=== PATIENT | male | born 1950 | race Caucasian/White ===

== ENCOUNTER → 2017-04-20 | Outpatient (CLI) | payer BC ==
--- NOTE | 2017-04-20 10:01 | DIAGNOSTIC IMAGING REPORT ---
RIGHT KNEE 4 OR MORE HISTORY: 66 years-old Male RIGHT KNEE PAIN Right acute posterior lateral right knee pain without reported trauma. COMPARISON: None available. TECHNIQUE: AP view of the bilateral standing knees with sunrise, tunnel and lateral views of the right knee. FINDINGS: I compartment osteoarthritis is noted within the bilateral knees, most pronounced the medial compartment left knee with there is moderate disease. Moderate osteoarthritis is also noted within the right patellofemoral joint. Mild to moderate medial and mild lateral compartment degenerative changes are seen on the right. Nonspecific periosteal thickening is noted involving the proximal tibia, left greater than right. There is no acute fracture or dislocation. No osteochondral defect identified. Small joint effusion is noted. Peripheral vascular disease. IMPRESSION: 1. No acute fracture or dislocation. 2. Tricompartmental osteoarthritis of the bilateral knees, most pronounced within the left medial compartment and right patellofemoral joint where there is moderate disease. 3. Small joint effusion. 4. Peripheral vascular disease. The above report was generated using voice recognition software. It may contain grammatical, syntax or spelling errors. Electronically signed by: Jose Sheehan M.D. 04/20/2017 9:59 AM Dictated Date/Time: 04/20/2017 9:52 AM
== END | disposition home or self-care (01) ==
LOC: C.RDSM 09:35
PROVIDERS: ATTEND Family Medicine
DX: M25.561 Pain in right knee (principal); M17.11 Unilateral primary osteoarthritis, right knee; M25.461 Effusion, right knee

== ENCOUNTER → 2017-07-11 | Outpatient (CLI) | payer BC ==
--- NOTE | 2017-07-11 11:32 | DIAGNOSTIC IMAGING REPORT ---
R LOWER EXT JOINT WITHOUT CLINICAL HISTORY: 67 years-old Male with RT KNEE PAIN. Acute right knee pain for 3 months. Pain is most pronounced laterally. Concern for possible meniscal tear. COMPARISON: Right knee radiographs 04/20/2017 TECHNIQUE: Multiplanar, multisequence MRI of the right knee was performed without intravenous contrast. FINDINGS: MENISCI: Mild intrameniscal degeneration of the lateral meniscus without discrete tear. There is a radial tear of the posterior horn medial meniscus without definite extension into the meniscal root as seen on image 21 series 4 and image 17 series 7 and lastly on image 16 of series 9. No displaced fragment or parameniscal cyst identified. There is mild irregularity involving the undersurface of the medial meniscal body as seen on image 15 series 4 which is suspicious for subtle tear, not seen on the sagittal images. CRUCIATE LIGAMENTS: The anterior and posterior cruciate ligaments are normal in signal, morphology and course. COLLATERAL LIGAMENTS: The popliteus tendon, biceps femoris tendon, fibular collateral ligament and iliotibial band are intact. The superficial and deep components of the medial collateral ligament are intact. EXTENSOR MECHANISM: The quadriceps and patellar tendons are intact.The medial and lateral patellar retinacula are intact. There is mild thickening with intermediate T2 signal of the proximal patellar tendon suggesting tendinosis. KNEE JOINT: Small to moderate joint effusion with mild synovitis. High-grade chondral loss with chondral fissuring and underlying subchondral edema is noted involving the lateral patellar facet and to a lesser extent the patellar apex and medial patellar facet. Mild chondral thinning is also noted within the trochlear groove. Moderate joint space narrowing with multifocal chondral thinning involves the medial compartment. There is mild subcortical cystic change/edema involving both the medial femoral condyle and tibial plateau. Mild chondral loss and joint space narrowing involves the lateral compartment. BONE MARROW: No fracture or marrow replacing process. SOFT TISSUES: Mild nonspecific edema seen within the posterior intercondylar notch. No large Ruby's cyst. IMPRESSION: 1. Tricompartmental osteoarthritis, moderate within the medial and patellofemoral compartments with areas of high-grade chondral loss as above. 2. Radial tear of the posterior horn medial meniscus without definite extension into the meniscal root. No displaced fragment or parameniscal cyst. Probable subtle horizontal undersurface tear of the medial meniscal body as above. 3. Small to moderate joint effusion with synovitis. 4. Mild patellar tendinosis. The above report was generated using voice recognition software. It may contain grammatical, syntax or spelling errors. Electronically signed by: Jose Sheehan M.D. 07/11/2017 11:31 AM Dictated Date/Time: 07/11/2017 10:46 AM
== END | disposition home or self-care (01) ==
LOC: C.MRI 09:31
PROVIDERS: ATTEND Family Medicine
DX: M17.11 Unilateral primary osteoarthritis, right knee (principal); S83.241A Other tear of medial meniscus, current injury, right knee, initial encounter; M76.51 Patellar tendinitis, right knee; X58.XXXA Exposure to other specified factors, initial encounter

== ENCOUNTER 2025-06-14 07:00 | Observation (INO) ==
[2025-06-14 07:59] LABS: Hematocrit (blood only) 41.4 % (42.0-52.0); Hemoglobin 13.5 g/dl (14.0-18.0); Immature Granulocytes # (auto) 0.03 K/uL (0.01-0.20); Immature Granulocytes % (auto) 0.4 %; Mean Corpuscular Hemoglobin 29.4 pg (25.0-34.0); Mean Corpuscular Volume 90.2 fL (80.0-100.0); Platelet Count 260 K/uL (130-400); RDW Standard Deviation 47.0 fL (36.4-46.3); Red Blood Count 4.59 M/uL (4.70-6.10); White Blood Count 8.11 K/ul (4.8-10.8)
[2025-06-14] MEDS: SODIUM CHLORIDE 0.9% 1,000 ML IV SCH (07:59)
--- NOTE | 2025-06-14 08:03 | Emergency Department Note ---
Impression & Plan Atrial fibrillation, Atrial flutter, Hypotension, Hypomagnesemia ED Provider Note ED Provider Note NAME: HAI ORTIZ AGE:75 SEX: Male : 1950 ARRIVES VIA: EMS INFORMANT: Patient, EMS ED PROVIDER(s): Lucie Marin DO CHIEF COMPLAINT: rib pain, dizziness HPI: This is a 75-year-old male presents emergency department via EMS after complaining to staff this morning of dizziness, chest pain, difficulty breathing. Patient states he has "not feeling" in his chest but has difficulty otherwise describing anxiety. Patient does have a history of dementia, according to [place] paperwork. He denies any coming nausea or vomiting, denies abdominal pain. At time of arrival here in the emergency department he denied any chest pain, dizziness, difficulty breathing. Patient noted to be tachycardic and hypotensive for EMS and route variable heart rate range from normal sinus in the 70s up to atrial fibrillation in the 130s. Patient was given IV fluids en route to the hospital. PAST MEDICAL HISTORY:See Below PAST SURGICAL HISTORY:See Below FAMILY HISTORY:See Below SOCIAL HISTORY:See Below HOME MEDICATIONS:See Below ALLERGIES:See Below VITALS:See Below PHYSICAL EXAMINATION: GENERAL: alert, well appearing, well nourished, no distress, non-toxic EYE EXAM: normal conjunctiva, PERRL and EOM's grossly intact OROPHARYNX: no exudate, no erythema, lips, buccal mucosa, and tongue normal and mucous membranes are moist NECK: supple, no nuchal rigidity, no adenopathy, non-tender LUNGS: Clear to auscultation. Normal chest wall mechanics, no w/r/r HEART: no murmurs, S1 normal and S2 normal ABDOMEN: abdomen soft, non-tender, normo-active bowel sounds, no masses, no rebound or guarding. SKIN: no rashes, petechiae, orbruising UPPER EXTREMITIES: upper extremities are grossly normal. FROM, nml pulses b/l. LOWER EXTREMITIES: No pitting edema. FROM, nml pulses b/l. NEURO EXAM: Normal sensorium, cranial nerves II-XII grossly intact, normal speech, no facial droop,nogross weakness of arms, no gross weakness of legs. Gross sensation intact. No ataxia. Vital Signs: reviewed and remarkable Differential Diagnosis: acute coronary syndrome, pericarditis, pulmonary embolus, aortic dissection, pneumonia, pneumothorax, musculoskeletal pain, shingles, GERD, GI bleed, as well as others were considered MEDICAL DECISION MAKING: This is a 75-year-old male presents the emergency department from a local facility due to concern for dizziness, palpitations, chest pain. He was noted to be tachycardic and hypotensive. Patient does have a history of atrial fibrillation. Patient afebrile and on arrival was still intermittently tachycardic and intermittently hypotensive. Patient's rhythm varied from normal sinus to atrial flutter to atrial fibrillation. His blood pressure was improved when he would return to a normal sinus rhythm. Labs drawn and sent, IV established, EKG and CXR performed and interpreted at bedside, and patient placed on telemetry. Patient was continued on IV fluids here. I did attempt to contact patient's sister and spoke with her and she did not have much additional medical information to offer. I also reached out to the listed PCP, Dr. Cassidy, who was able to add that the patient did have an echo earlier this year which showed an ejection fraction of 40% and global hypokinesis. Patient remained awake and alert and denied any symptoms at bedside while in the emergency department. Patient was noted to have significant hypomagnesemia and will be started on IV repletion. Patient's other labs reassuring. Case discussed with the hospitalist team for additional evaluation and management. Consultation(s): 0908: Discussed with Dr. Qureshi, [place] hospitalist, for additional evaluation and mgmt. ER Treatment Provided: See below 0758: Discussed with sister, Ambar. Diagnostics Interpreted By Me: -ECG: Atrial fibrillation rate of 133, normal axis, normal intervals, nonspecific ST/T wave change -Cardiac Monitoring: An order was placed for continuous cardiac monitoring. The monitor shows a rate of 78 with normal sinus rhythm. -Laboratory studies: As stated above and show below. -Imaging studies: X-ray Chest: A single view study of the chest was reviewed and was negative for cardiomegaly, focal infiltrate, effusion, pulmonary edema, or wide mediastinum. Triage Nursing Note Reviewed Prior/Outside Records Reviewed -accompanying senior living paperwork and medication list Critical care: Critical care of 44 min performed to assess and manage high likelihood of life-threatening dysrhythmia and hypotension, involving labs and imaging performed with assessment to evaluate dysrhythmia and hypotension diagnosis with frequent reassessment. This time includes bedside time, treatment discussions with patient/family/consultants, documentation time and excludes procedure time. Past Med/Surg History Problem List (Updated 06/14/25 @ 11:42 by Dionicio Qureshi DO) Hyperlipidemia (Chronic) Coronary atherosclerosis (Chronic) Aortic stenosis (Chronic) Type 2 diabetes mellitus with hyperglycemia (Chronic) Paroxysmal atrial fibrillation (Chronic) Ischemic cardiomyopathy (Chronic) Chronic heart failure with reduced ejection fraction (HFrEF, <= 40%) (Chronic) Severe dementia without behavioral disturbance, psychotic disturbance, mood disturbance, or anxiety (Chronic) Atrial fibrillation with RVR (Acute) Hypomagnesemia (Acute) Hypotension (Acute) Medical History (Updated 06/14/25 @ 11:42 by Dionicio Qureshi DO) Closed intertrochanteric fracture of right femur with routine healing Social History Smoking Status: Former smoker Hx Alcohol Use: No Hx Substance Use: No Preferred Language: Chinese Communication Tools: Other Rat [employer]ist Required: Yes Beliefs That Will Affect Care: None Current Living Situation: Intermediate Feels Safe at Home: Yes Assistive Devices: None Allergies Allergies Allergy/AdvReac Type Severity Reaction Status Date / Time No Known Allergies Allergy Verified 06/14/25 10:19 Home Meds Home Medications Medication Instructions Recorded Confirmed apixaban 5 mg tablet (Eliquis) 5 mg PO BID 06/14/25 06/14/25 atorvastatin 40 mg tablet 40 mg PO DAILY 06/14/25 06/14/25 dapagliflozin propanediol 5 mg 5 mg PO DAILY 06/14/25 06/14/25 tablet (Farxiga) metformin 1,000 mg tablet 1,000 mg PO BID 06/14/25 06/14/25 sacubitril 24 mg-valsartan 26 mg 1 tab PO BID 06/14/25 06/14/25 tablet (Entresto) Results & Data (ED) Vital Signs Vital Signs - 24 hr 06/14/25 06:53 06/14/25 07:04 06/14/25 07:04 Temperature 36.6 C Temperature Source Oral Pulse Rate 160 H Pulse Rate from SpO2 Sensor Respiratory Rate 18 16 Blood Pressure 93/73 L Blood Pressure Mean 79 Pulse Oximetry 99 Oxygen Delivery Method Room Air Room Air Sepsis Recent Fever Within 48 Hours No Sepsis New/Unexplained Change in Mental Status N/A Sepsis Action Taken by Nursing Physician Notified 06/14/25 07:31 06/14/25 07:37 06/14/25 07:39 Temperature Temperature Source Pulse Rate 112 H Pulse Rate from SpO2 Sensor 117 H Respiratory Rate 12 Blood Pressure 93/45 L 81/66 L 92/60 L Blood Pressure Mean 64 69 70 Pulse Oximetry 100 Oxygen Delivery Method Room Air Sepsis Recent Fever Within 48 Hours Sepsis New/Unexplained Change in Mental Status Sepsis Action Taken by Nursing 06/14/25 07:42 06/14/25 07:48 06/14/25 08:12 Temperature Temperature Source Pulse Rate 109 H 109 H 113 H Pulse Rate from SpO2 Sensor 107 H 95 H Respiratory Rate 18 16 Blood Pressure Blood Pressure Mean Pulse Oximetry 100 100 Oxygen Delivery Method Room Air Room Air Sepsis Recent Fever Within 48 Hours Sepsis New/Unexplained Change in Mental Status Sepsis Action Taken by Nursing 06/14/25 08:15 06/14/25 08:33 Temperature Temperature Source Pulse Rate 112 H 117 H Pulse Rate from SpO2 Sensor 97 H 103 H Respiratory Rate 12 16 Blood Pressure 86/47 L 97/48 L Blood Pressure Mean 60 64 Pulse Oximetry 92 96 Oxygen Delivery Method Room Air Room Air Sepsis Recent Fever Within 48 Hours Sepsis New/Unexplained Change in Mental Status Sepsis Action Taken by Nursing Laboratory Data 06/14/25 07:11 06/14/25 07:11 Lab Results 06/14/25 06/14/25 Range/Units 07:11 07:55 WBC 8.11 (4.8-10.8) K/ul RBC 4.59 L (4.70-6.10) M/uL Hgb 13.5 L (14.0-18.0) g/dl Hct 41.4 L (42.0-52.0) % MCV 90.2 (80.0-100.0) fL MCH 29.4 (25.0-34.0) pg MCHC 32.6 (32.0-36.0) g/dL RDW Std Deviation 47.0 H (36.4-46.3) fL RDW Coeff of Toby 14.2 (11.5-14.5) % Plt Count 260 (130-400) K/uL MPV 12.0 (9.4-12.4) fL Immature Gran % (Auto) 0.4 % Neut % (Auto) 66.6 % Lymph % (Auto) 20.6 % Merrick % (Auto) 8.1 % Eos % (Auto) 3.7 % Baso % (Auto) 0.6 % Neut # (Auto) 5.40 (1.40-6.50) K/uL Lymph # (Auto) 1.67 (1.20-3.40) K/uL Merrick # (Auto) 0.66 H (0.11-0.59) K/uL Eos # (Auto) 0.30 (0.00-0.50) K/uL Baso # (Auto) 0.05 (0.00-0.20) K/uL Immature Gran # (Auto) 0.03 (0.01-0.20) K/uL PT 11.7 (9.0-12.0) Seconds INR 1.1 (0.9-1.1) Sodium 141 (136-145) mmol/L Potassium 3.5 (3.5-5.1) mmol/L Chloride 104 (98-107) mmol/L Carbon Dioxide 27 (21-32) mmol/L Anion Gap 10 (3-11) BUN 17 (6-23) mg/dl Creatinine 0.65 (0.6-1.4) mg/dl Est Cr Clr Drug Dosing 103.2 ml/min eGFR 99.49 BUN/Creatinine Ratio 26.2 H (10-20) Glucose 113 H (70-99(Fasting)) mg/dl Calcium 8.8 (8.6-10.3) mg/dl Magnesium 1.3 L (1.7-2.4) mg/dl Total Bilirubin 0.9 (0.2-1.0) mg/dl AST 13 (13-39) U/L ALT 10 (7-52) U/L Alkaline Phosphatase 44 (34-104) U/L Troponin I High Sens 14.9 (0-20) pg/ml B-Natriuretic Peptide 65 (0-100) pg/ml Total Protein 6.1 (6.0-8.3) gm/dl Albumin 3.9 (3.4-5.0) gm/dl Globulin 2.2 L (2.5-4.0) gm/dl Albumin/Globulin Ratio 1.8 (0.9-2) Lipase 11 (11-82) U/L TSH 0.619 (0.300-4.500) uIu/ml SARS-CoV-2 (PCR) NEGATIVE (Negative) Influenza Type A (PCR) Negative (Neg) Influenza Type B (PCR) Negative (Neg) RSV (RT-PCR) Negative (Neg) Administered Medications Polyethylene Glycol (Polyethylene (Miralax) 17 Gm Pack) 17 gm PO DAILY FABRICIO Stop: 07/14/25 13:43 Last Admin: 06/14/25 15:23 Dose: Not Given Documented By: AMS Discontinued Medications Sodium Chloride (Nss) 1,000 mls @ 125 mls/hr IV .Q8H FABRICIO Stop: 06/17/25 07:44 Last Infusion: 06/14/25 17:07 Dose: Infused Documented By: Admin: 06/14/25 16:29 Dose: 125 mls/hr Documented By: Infusion: 06/14/25 15:59 Dose: Infused Documented By: Admin: 06/14/25 07:59 Dose: 125 mls/hr Documented By: JERRY Magnesium Sulfate/Dextrose (Magnesium Sulfate / D5w) 1 gm in 100 mls @ 100 mls/hr IV Q1H FABRICIO Stop: 06/14/25 10:19 Last Infusion: 06/14/25 10:33 Dose: Infused Documented By: Admin: 06/14/25 09:22 Dose: 100 mls/hr Documented By: Infusion: 06/14/25 09:22 Dose: Infused Documented By: Admin: 06/14/25 08:26 Dose: 100 mls/hr Documented By: JERRY Imaging Data Radiologist's Impression: Chest X-Ray 06/14/25 07:38 EXAM: XR chest 1V portable CLINICAL HISTORY: Shortness of breath. TECHNIQUE: An X-ray image of the chest was obtained in the AP projection. COMPARISON: No prior studies are available for comparison. FINDINGS: The patient is technically rotated. Pulmonary Parenchyma: Hyperinflation of both lung barrett is noted. There is no evidence of consolidation, collapse, or focal opacities. No discrete pleuropulmonary nodularity is detected on either side. There is no evidence of pleural effusion or pleural thickening. Heart and Mediastinum: The size and shape of the heart are normal. There is no mediastinal widening. No hilar lymphadenopathy is seen. Bony Thorax: The bony thorax appears intact without fractures or deformities. Degenerative changes are identified in the visualized spine. Soft Tissues: The soft tissues overlying the chest wall appear unremarkable. IMPRESSION: No acute cardiopulmonary abnormalities are identified. Electronically signed by Marshall Davis 06-14-2025 08:51 AM Discharge Plan Visit Data Chief Complaint: Chest Pain Stated Complaint: CHEST PAIN, HYPOTENSION ED Provider: Lucie Marin Discharge Problem: Atrial fibrillation, Atrial flutter, Hypotension, Hypomagnesemia Patient Disposition: Admitted As Inpatient Condition: Fair Discharge Instructions Interventions: ED Discharge Assessment Last Done: 06/14/25 13:23 Discharge Problem: Hypotension Qualifiers: Hypotension type: other hypotension type Qualified Code(s): I95.89 - Other hypotension
[2025-06-14 08:17] LABS: Alanine Aminotransferase 10.0 U/L (7-52); Albumin Globulin Ratio 1.8 (0.9-2); Albumin Level 3.9 gm/dl (3.4-5.0); Alkaline Phosphatase 44.0 U/L (34-104); Anion Gap 10.0 (3-11); Bilirubin,Total 0.9 mg/dl (0.2-1.0); Blood Urea Nitrogen 17.0 mg/dl (6-23); Calcium 8.8 mg/dl (8.6-10.3); Carbon Dioxide 27.0 mmol/L (21-32); Chloride 104.0 mmol/L (98-107); Creatinine Clr Calc Pharmacy 103.2 ml/min; Globulin 2.2 gm/dl (2.5-4.0); Glucose 113.0 mg/dl (70-99(Fasting)); Lipase 11.0 U/L (11-82); Magnesium 1.3 mg/dl (1.7-2.4); Potassium 3.5 mmol/L (3.5-5.1); Sodium 141.0 mmol/L (136-145); Total Protein 6.1 gm/dl (6.0-8.3)
[2025-06-14] MEDS: MAGNESIUM SULFATE / D5W 1 GM/100 ML BAG IV SCH (08:26)
[2025-06-14 08:32] LABS: Thyroid Stimulating Hormone 0.619 uIu/ml (0.300-4.500)
[2025-06-14 08:35] LABS: INR 1.1 (0.9-1.1); Prothrombin Time 11.7 Seconds (9.0-12.0)
--- NOTE | 2025-06-14 08:52 | XRay Report ---
EXAM: XR chest 1V portable CLINICAL HISTORY: Shortness of breath. TECHNIQUE: An X-ray image of the chest was obtained in the AP projection. COMPARISON: No prior studies are available for comparison. FINDINGS: The patient is technically rotated. Pulmonary Parenchyma: Hyperinflation of both lung barrett is noted. There is no evidence of consolidation, collapse, or focal opacities. No discrete pleuropulmonary nodularity is detected on either side. There is no evidence of pleural effusion or pleural thickening. Heart and Mediastinum: The size and shape of the heart are normal. There is no mediastinal widening. No hilar lymphadenopathy is seen. Bony Thorax: The bony thorax appears intact without fractures or deformities. Degenerative changes are identified in the visualized spine. Soft Tissues: The soft tissues overlying the chest wall appear unremarkable. IMPRESSION: No acute cardiopulmonary abnormalities are identified. Electronically signed by Marshall Davis 06-14-2025 08:51 AM
[2025-06-14 09:07] LABS: Influenza A virus by PCR Negative (Neg); Influenza B virus by PCR Negative (Neg); SARS CoV2 RNA(COVID-19) Ceph NEGATIVE (Negative)
[2025-06-14] MEDS ORDERED: STAT IV Infusion **Titration per Protocol STA (09:14)
--- NOTE | 2025-06-14 09:19 | History & Physical Report ---
Date of Service June 14, 2025 Assessment & Plan (1) Atrial fibrillation with RVR: (2) Hypomagnesemia: (3) Hypotension: (4) Chronic heart failure with reduced ejection fraction (HFrEF, <= 40%): (5) Severe dementia without behavioral disturbance, psychotic disturbance, mood disturbance, or anxiety: (6) Paroxysmal atrial fibrillation: (7) Type 2 diabetes mellitus with hyperglycemia: Plan In summary this is a 75-year-old male who presents with epigastric discomfort found to have atrial fibrillation with rapid ventricular response #Atrial fibrillation with RVR // Hypomagnesemia // Chronic HFrEF Previously diagnosed; CHADS2-Vasc 4; HAS BLED 2; on telemetry the patient is intermittently entering into an uncontrolled rapid ventricular response with self correction to normal sinus rhythm; the patient's blood pressure does decrease during episodes of RVR however the patient is relatively asymptomatic of this. Given the unpredictability of the patient's transient episodes of RVR, pharmacologic intervention has not been pursued other than magnesium replacement therapy provided by the patient's emergency department provider; the patient was previously established on metoprolol succinate in the setting of their heart failure however this was discontinued due to symptomatic hypotension - Nursing to notify of heart rate sustained greater than 120 bpm; would anticipate pursuing Cardizem bolus and drip if they reenter into a sustained atrial fibrillation with rapid ventricular response - Continue Eliquis 5 mg twice daily - Follow daily electrolytes - No indication to update the patient's TTE at this time #Dementia without behavioral disturbance Does not require pharmacologic intervention at this time; please intervene with nonpharmacologic measures prior to any drug adiministration #Type II Diabetes mellitus with hyperglycemia Most recent hemoglobin A1c of 7.7% in 12/2024, reassessment pending; glycemic target of preprandial less than 140 and random checks less than 180; hold home medication regimen - Start Lantus 7 units SQ twice daily - Start NovoLog sliding scale with correction factor of 60 mg/dL/unit and carbohydrate ratio 20 g/unit History of Present Illness Chief Complaint: Feeling unwell Primary Care Provider: Sumeet De Leon Mr. Concepcion is a 75-year-old male whose active medical conditions include heart failure with reduced ejection fraction in the setting of ischemic cardiomyopathy, coronary atherosclerosis, paroxysmal atrial fibrillation, hyperlipidemia, severe dementia without behavioral disturbance among other chronic medical conditions who presented to the [facility] on 06/14 due to feeling generally unwell, subsequently admitted for intermittent atrial fibrillation with rapid ventricular response. The patient is unable to provide a consistent history consequential of their de mentia however they are able to recall that on the day of presentation they were performing their usual activities when they suddenly felt "unwell" described as some nausea and fatigue and a general sense of discomfort in the epigastric area. They were subsequently brought to the emergency department for further evaluation. At the time my evaluation the patient denies any chest pain, shortness of breath, orthopnea, platypnea, palpitations, lightheadedness, nausea. Allergies Allergy/AdvReac Type Severity Reaction Status Date / Time No Known Allergies Allergy Verified 06/14/25 10:19 Home Medications Medication Instructions Recorded Confirmed Type apixaban 5 mg tablet (Eliquis) mg 06/14/25 History atorvastatin 40 mg tablet mg 06/14/25 History dapagliflozin propanediol 5 mg mg 06/14/25 History tablet (Farxiga) metformin 1,000 mg tablet mg 06/14/25 History sacubitril 24 mg-valsartan 26 mg tab 06/14/25 History tablet (Entresto) Past Med/Surg History Problem List (Updated 06/14/25 @ 11:42 by Dionicio Qureshi DO) Hyperlipidemia (Chronic) Coronary atherosclerosis (Chronic) Aortic stenosis (Chronic) Type 2 diabetes mellitus with hyperglycemia (Chronic) Paroxysmal atrial fibrillation (Chronic) Ischemic cardiomyopathy (Chronic) Chronic heart failure with reduced ejection fraction (HFrEF, <= 40%) (Chronic) Severe dementia without behavioral disturbance, psychotic disturbance, mood disturbance, or anxiety (Chronic) Atrial fibrillation with RVR (Acute) Hypomagnesemia (Acute) Hypotension (Acute) Medical History (Updated 06/14/25 @ 11:42 by Dionicio Qureshi DO) Closed intertrochanteric fracture of right femur with routine healing Social History Smoking Status: Former smoker Preferred Language: Andor[place] Feels Safe at Home: Yes Review of Systems Review of Systems: Review of constitutional, cardiovascular, pulmonary, gastrointestinal systems was unremarkable except for pertinent positive and negative findings discussed above Physical Exam Physical Exam: General: Elderly male in no acute distress Vital Signs: Reviewed HEENT: Moist mucous membranes; pupils equally round and reactive to light, extraocular motion intact Neck: No JVD at rest nor hepatojugular reflux Pulmonary: Symmetric chest wall excursion without restriction; clear to auscultation bilaterally Cardiovascular: Regular rate and rhythm with grade 2/6 systolic murmur best heard in the right second intercostal space parasternally; no rubs or gallops; S1 and S2 normal; right radial pulse 2+; no notable lower extremity edema Gastrointestinal: Soft, nontender Neurologic: Cranial nerves II through XII grossly intact; no discernible focal weakness no paresthesia; alert and oriented to self and place but not time; they are able to recount the circumstances that led to their presentation to the hospital Results & Data Results & Data Vital Signs (Past 12 Hours) Vital Signs Temp Pulse Resp BP Pulse Ox O2 Del Method 06/14/25 08:33 117 H 16 97/48 L 96 Room Air 06/14/25 08:15 112 H 12 86/47 L 92 Room Air 06/14/25 08:12 113 H 06/14/25 07:48 109 H 16 100 Room Air 06/14/25 07:42 109 H 18 100 Room Air 06/14/25 07:39 112 H 12 92/60 L 100 Room Air 06/14/25 07:37 81/66 L 06/14/25 07:31 93/45 L 06/14/25 07:04 16 06/14/25 07:04 Room Air 06/14/25 06:53 36.6 C 160 H 18 93/73 L 99 Room Air Laboratory Results Hemoglobin 13.5, MCV 90.2, MCHC 32.6, RDW 47.0 (baseline hemoglobin appears to be in the range of 11-12) Diminished magnesium of 1.3 ECG Additional Comments: Irregular RR interval; tachycardic rate; no ischemic changes, consistent with atrial fibrillation with rapid ventricular response Code Status & VTE Plan Code Status DNR/DNI VTE Prophylaxis Plan VTE Prophylaxis will be ordered: Yes PG Care Time/CCT Total # of Minutes Spent Total Time Spent with Patient: Total time spent is greater than 50% in coordination of care (as documented) at patient's floor/unit and/or counseling patient: Coding Level of Care Code 48094 INT INP/OBS CARE 2/55MIN Diagnoses Atrial fibrillation with RVR I48.91 Hypomagnesemia E83.42 Other specified hypotension I95.89 Hypotension type: other hypotension type Chronic heart failure with reduced ejection fraction (HFrEF, <= 40%) I50.22 Severe Alzheimer's dementia without behavioral disturbance, psychotic disturbance, mood disturbance, or anxiety, unspecified timing of dementia onset G30.9; F02.C0 Dementia type: Alzheimer's Alzheimer's disease onset: unspecified onset Paroxysmal atrial fibrillation I48.0 Type 2 diabetes mellitus with hyperglycemia, without long-term current use of insulin E11.65 Diabetes mellitus retirement insulin use: without truck terminal manager use (3) Hypotension Hypotension type: other hypotension type Qualified Code(s): I95.89 - Other hypotension (5) Severe dementia without behavioral disturbance, psychotic disturbance, mood disturbance, or anxiety Dementia type: Alzheimer's Alzheimer's disease onset: unspecified onset Qualified Code(s): G30.9 - Alzheimer's disease, unspecified; F02.C0 - Dementia in other diseases classified elsewhere, severe, without behavioral disturbance, psychotic disturbance, mood disturbance, and anxiety (7) Type 2 diabetes mellitus with hyperglycemia Diabetes mellitus truck terminal manager insulin use: without retirement use Qualified Code(s): E11.65 - Type 2 diabetes mellitus with hyperglycemia
--- NOTE | 2025-06-14 10:54 | Electrocardiogram Report ---
Test Reason : Blood Pressure : */* mmHG Vent. Rate : 133 BPM Atrial Rate : * BPM P-R Int : * ms QRS Dur : 88 ms QT Int : 316 ms P-R-T Axes : * 90 59 degrees QTcB Int : 470 ms Atrial fibrillation with rapid ventricular response Rightward axis Nonspecific ST and T wave abnormality Abnormal ECG Confirmed by Heath Dumas ([id number]) on 06/14/2025 10:54:25 AM Referred By: [facility] Confirmed By: Heath Dumas
[2025-06-14] MEDS ORDERED: GLUCOSE 40% GEL 15 GM TUBE PO PRN (13:44)
[2025-06-14] MEDS ORDERED: CARBOHYDRATES FOR HYPOGLYCEMIA PO PRN (13:44)
[2025-06-14] MEDS ORDERED: PHARMACY GLYCEMIC MGMT CONSULT PRN (13:44)
[2025-06-14] MEDS ORDERED: GLUCOSE 10 TAB/TUBE PO PRN (13:44)
[2025-06-14] MEDS ORDERED: GLUCAGON FOR INJ 1 MG VIAL SQ PRN (13:44)
[2025-06-14] MEDS ORDERED: DEXTROSE 50% 50 ML SYRINGE IV PRN (13:44)
--- NOTE | 2025-06-14 14:08 | Pharmacy Report ---
Pharmacy Glycemic Short Note 2 - Date of Service June 14, 2025 - Glycemic Short BSG Results (Last 24 hours): 06/14/25 07:11 Glucose 113 H OUTPATIENT ANTIDIABETIC REGIMEN: * farxiga 5 mg daily, metformin 1 gm bid ASSESSMENT: * 75 year old admitted with afib. Pharmacy consulted for glycemic management. Patient type 2 diabetic managed on oral agents outpatient. Plan to start novolog weight based stress ~2 dosing for now. Will hold basal insulin, but consider adding if fasting elevated tomorrow AM. PLAN FOR INPATIENT GLYCEMIC CONTROL: * Hold outpatient oral diabetes medications * Basal insulin * Lantus - hold * Bolus insulin * NovoLog per scale ACHS or Q6hrs while NPO * Goal Range: Low 110 mg/dL - High 140 mg/dL * Correction Factor: 35 mg/dL/unit * Nutritional / Prandial insulin per carb ratio of 1 unit per 15 grams CHO consumed
[2025-06-14] MEDS: POLYETHYLENE (MIRALAX) 17 GM PACK PO SCH (15:23)
[2025-06-14] MEDS: INSULIN ASPART PER UNIT CHARGE SC SCH (17:33)
[2025-06-14] MEDS: APIXABAN 5 MG TABLET PO SCH (20:18)
[2025-06-14] MEDS: VALSARTAN/SACUBITRIL 26/24MG TAB PO SCH (20:18)
[2025-06-14] MEDS ORDERED: LANTUS PER UNIT CHARGE SQ SCH (21:00)
[2025-06-15 07:41] LABS: Albumin Level 4.3 gm/dl (3.4-5.0); Anion Gap 7.0 (3-11); Blood Urea Nitrogen 15.0 mg/dl (6-23); Calcium 9.4 mg/dl (8.6-10.3); Carbon Dioxide 30.0 mmol/L (21-32); Chloride 101.0 mmol/L (98-107); Creatinine Clr Calc Pharmacy 116.0 ml/min; Glucose 93.0 mg/dl (70-99(Fasting)); Magnesium 1.9 mg/dl (1.7-2.4); Potassium 4.0 mmol/L (3.5-5.1); Sodium 138.0 mmol/L (136-145)
[2025-06-15] MEDS: ASPIRIN 81 MG ECTAB PO SCH (08:10)
[2025-06-15] MEDS: ATORVASTATIN 40 MG TAB PO SCH (08:10)
[2025-06-15 08:15] LABS: Hemoglobin A1C 5.7 % (4.5-5.6)
--- NOTE | 2025-06-15 10:53 | Communication Note ---
Date of Service: June 15, 2025 By CMS guidelines, a determination that the admission or continued stay is not medically necessary has been made by a member of the UR committee and a ph ysician for this hospital stay, therefore a Code 44 will be completed and the Inpatient admission will be changed to outpatient.
--- NOTE | 2025-06-15 10:56 | Discharge Summary ---
Discharge Summary Date of Service June 15, 2025 Principal Dx & Hospital Course #1 = Principal Diagnosis (1) Atrial fibrillation with RVR: (2) Hypomagnesemia: (3) Hypotension: (4) Chronic heart failure with reduced ejection fraction (HFrEF, <= 40%): (5) Severe dementia without behavioral disturbance, psychotic disturbance, mood disturbance, or anxiety: (6) Paroxysmal atrial fibrillation: (7) Type 2 diabetes mellitus with hyperglycemia: Plan In summary this is a 75-year-old male who presents with epigastric discomfort found to have atrial fibrillation with rapid ventricular response #Atrial fibrillation with RVR // Hypomagnesemia // Chronic HFrEF Previously diagnosed; CHADS2-Vasc 4; HAS BLED 2 he was found to be hypomagnesia with magnesium level of 1.3. Upon replacement with IV magnesium he converted to sinus rhythm and remained in sinus throughout the night and this morning. He is asymptomatic. - Added standing replacement with oral magnesium oxide 400 mg daily, increase to twice daily if this can be tolerated without diarrhea. If he is having diarrhea on once daily change to extended release magnesium - monitor magnesium level intermittently - added low-dose metoprolol succinate to provide some degree of rate control. It is possible his blood pressure may not tolerate this but worth a try - his HFrEF is not in exacerbation, continue Entresto and added low-dose beta- yamilka as above #Dementia without behavioral disturbance Does not require pharmacologic intervention at this time; please intervene with nonpharmacologic measures prior to any drug administration #Type II Diabetes mellitus with hyperglycemia A1c was 5.7 yesterday, continue twice daily metformin continue atorvastatin for hyperlipidemia return to heart side where he lives Admission HPI Per Admitting Provider Mr. Concepcion is a 75-year-old male whose active medical conditions include heart failure with reduced ejection fraction in the setting of ischemic cardiomyopathy, coronary atherosclerosis, paroxysmal atrial fibrillation, hyperlipidemia, severe dementia without behavioral disturbance among other chronic medical conditions who presented to the [facility] on 06/14 due to feeling generally unwell, subsequently admitted for intermittent atrial fibrillation with rapid ventricular response. The patient is unable to provide a consistent history consequential of their dementia however they are able to recall that on the day of presentation they were performing their usual activities when they suddenly felt "unwell" described as some nausea and fatigue and a general sense of discomfort in the epigastric area. They were subsequently brought to the emergency department for further evaluation. At the time my evaluation the patient denies any chest pain, shortness of breath, orthopnea, platypnea, palpitations, lightheadedness, nausea. Discharge Exam Last 24h vitals reviewed GEN: no acute distress, sitting edge of bed in street clothes HEENT: pupils equal, sclerae anicteric, moist MM RESP: normal WOB, CTAB CV: reg systolic murmur ABD: soft/nt/nd +BT : no grullon SKIN: warm and dry, no generalized rashes NEURO: AOx person, confused and forgetful. Face symmetric, speech normal, moves 4 ext spontaneously and equally Discharge Plan Discharge Items Patient Disposition: Transfer Residential Fac Reason For Visit: ARTIAL FIBRILLATION WITH RVR Discharge Diagnosis: atrial fibrillation with RVR Condition on Discharge: Fair Activity: Resume your previous activity Non-emergency contact: Primary Care Provider Call non-emergency contact if: you have any medication questions and your symptoms worsen Follow-up/Referrals: Sumeet De Leon [Primary Care Provider] - (Please call your primary care provider to schedule a hospital follow-up appointment within 7-10 days) Diet: Carb Consistent or DM2 and Low Sodium (2gm) Addtl Attending Provider Instructions: PT and OT evaluate and treat rapid atrial fibrillation terminated after replacement with IV magnesium. magnesium on arrival in ED was 1.3, improved to 1.9 today trial magnesium replacement with oral magnesium oxide, if tolerated can increase to twice daily. If magnesium oxide causes diarrhea change to extended release magnesium added low-dose metoprolol succinate, may need to discontinue if blood pressure cannot tolerate or if frequent heart rates under 50 It was a pleasure taking care of you in the hospital, Jane Spann MD Pending Studies at Discharge: No Stand-Alone Forms: [facility] Skilled Items Patient informed of condition?: Yes DNR: Yes Discharge Level of Care: Skilled Communicable Disease: No Discharge Prognosis: Stable Lines: None Urinary Catheter: No Medications and DC Order Prescriptions: New magnesium oxide 400 mg (241.3 mg magnesium) Tablet 400 mg PO QAM Qty: 0 0RF metoprolol succinate 25 mg Tablet Extended Release 24 Hr 12.5 mg PO QAM Qty: 0 0RF Continued atorvastatin 40 mg tablet 40 mg PO DAILY metformin 1,000 mg tablet 1,000 mg PO BID Eliquis 5 mg tablet 5 mg PO BID dapagliflozin propanediol [Farxiga] 5 mg tablet 5 mg PO DAILY sacubitril-valsartan [Entresto] 24-26 mg tablet 1 tab PO BID Discharge Orders: Discharge Order (Routine); Ordered 06/15/25 Ordered By: Jane Nunez/Other Patient Handouts: Metoprolol Oral Tablet Admission Data Admit Date/Time: 06/14/25 09:17 Attending Provider: Jane Spann Admit Provider: Dionicio Qureshi Primary Care Provider: Sumeet De Leon Other Providers: Dionicio Qureshi Other Interventions: Discharge Summary Assessment (RN) Last Done: 06/15/25 13:15 Hospital Stay Data Consultations 06/14/25 09:45 ED Decision to Admit Stat Pending Results Patient Have Any Pending Studies at Discharge: No Discharge Instructions Given to Patient (Per Discharging Provider) PT and OT evaluate and treat rapid atrial fibrillation terminated after replacement with IV magnesium. magnesium on arrival in ED was 1.3, improved to 1.9 today trial magnesium replacement with oral magnesium oxide, if tolerated can increase to twice daily. If magnesium oxide causes diarrhea change to extended release magnesium added low-dose metoprolol succinate, may need to discontinue if blood pressure cannot tolerate or if frequent heart rates under 50 It was a pleasure taking care of you in the hospital, Jane Spann MD Total Time Total Time Spent Total Time Spent (In Minutes): I personally spent: 40 minutes today on clinical care activities including: reviewing chart notes and vital signs reviewing labs reviewing studies discussion with transitions rn care coordinator examining and counseling the patient writing orders writing prescriptions, discharge instructions documentation Coding Level of Care Code 64330 INP/OBS DISCH >30 MIN Diagnoses Atrial fibrillation with RVR I48.91 Hypomagnesemia E83.42 Other specified hypotension I95.89 Hypotension type: other hypotension type Chronic heart failure with reduced ejection fraction (HFrEF, <= 40%) I50.22 Severe Alzheimer's dementia without behavioral disturbance, psychotic disturbance, mood disturbance, or anxiety, unspecified timing of dementia onset G30.9; F02.C0 Alzheimer's disease onset: unspecified onset Dementia type: Alzheimer's Paroxysmal atrial fibrillation I48.0 Type 2 diabetes mellitus with hyperglycemia, without long-term current use of insulin E11.65 Diabetes mellitus intermodal customer service insulin use: without intermodal customer service use
[2025-06-15] MEDS: METOPROLOL SUCC 25MG EXT REL TAB PO SCH (12:00)
[2025-06-15] MEDS: MAGNESIUM OXIDE 400 MG TAB PO SCH (12:00)
== END 2025-06-15 15:20 ==
LOC: ED 07:00 → INTOOBSV 09:17 → SUATTDRO 09:17 → 2N 09:17